=== PATIENT | female | born 1960 | race Caucasian/White ===

== ENCOUNTER → 2017-10-29 09:50 | Outpatient (CLI) | payer OTHER | END | disposition home or self-care (01) | LOC: ADM 08:15 → LAB 09:50 → CIR.AMB 10-31 08:15 → EDSTATUS 10-31 08:15 → CIR.AMB 10-31 09:15 | DX: I10 Essential (primary) hypertension (principal); M24.112 Other articular cartilage disorders, left shoulder; Z01.810 Encounter for preprocedural cardiovascular examination; Z01.812 Encounter for preprocedural laboratory examination ==